=== PATIENT | male | born 1950 | race Caucasian/White ===

== ENCOUNTER 2017-01-28 07:04 | Day surgery (SDC) | payer MEDICARE, OTHER ==
[2017-01-23 14:55] VITALS: BMI 29.1
[~2017-01-28 07:04] MED LIST: ALPRAZolam 0.25 MG TAB PO PRN; ALPRAZolam 0.5 MG TAB PO PRN; ASPIRIN 325 MG TAB PO STA; ATORVASTATIN 80 MG TAB PO STA; NITROGLYCERIN SL TABS 0.4 MG TAB SUBLINGUAL PRN; SODIUM CHLORIDE 0.9% 1,000 ML in EMPTY BAG 1 BAG IV ONE
[2017-01-28 07:44] LABS: Basophils % (A) 0 %; CH 31.6; CHCM 34.5; Eosinophils # (A) 0.2 k/uL (0-0.7); Eosinophils % (A) 4 %; HCT 44.2 % (39.0-53.0); HDW 2.66; HGB 14.9 gm/dL (13.0-17.5); Luc % (Auto) 3; Lymphocytes # (A) 1.9 k/uL (1.0-4.8); Lymphocytes % (A) 28 %; MCH 31.1 pg (25.0-35.0); MCHC 33.7 g/dL (31.0-37.0); MCV 92.2 fL (80.0-100.0); Mean Platelet Volume 7.2; Monocytes # (A) 0.4 k/uL (0-1.0); Monocytes % (A) 6 %; Neutrophils % (A) 59 %; RBC 4.79 m/uL (4.30-5.90); WBC 6.7 k/uL (3.8-10.6); WBC (Perox) 6.67
[2017-01-28 07:52] VITALS: PULSE 60; TEMP 98
[2017-01-28 08:13] LABS: Anion Gap 11 mmol/L; Blood Urea Nitrogen 20 mg/dL (9-20); Calcium 9.3 mg/dL (8.4-10.2); Carbon Dioxide 26 mmol/L (22-30); Chloride 106 mmol/L (98-107); Glucose 108 mg/dL (74-99); Non-African American GFR(MDRD) >60 (>60 ml/min/1.73 sqM); Potassium 4.3 mmol/L (3.5-5.1); Sodium 143 mmol/L (137-145)
[2017-01-28] MEDS ORDERED: MIDAZOLAM 2 MG/2 ML VIAL ONE (08:46)
[2017-01-28] MEDS ORDERED: VERAPAMIL 2.5 MG/ML 2 ML AMP ONE (08:47)
[2017-01-28] MEDS ORDERED: fentaNYL (PF) 50 MCG/ML 2 ML AMP ONE (08:47)
[2017-01-28] MEDS ORDERED: LIDOCAINE 2% INJ 20 MG/ML (20 ML MDV) ONE (08:47)
[2017-01-28] MEDS ORDERED: fentaNYL (PF) 50 MCG/ML 2 ML AMP IV ONE (09:00)
[2017-01-28] MEDS ORDERED: MIDAZOLAM 2 MG/2 ML VIAL IVP ONE (09:00)
[2017-01-28] MEDS ORDERED: HEPARIN SODIUM 1,000 UNIT/ML VIAL ONE (09:01)
[2017-01-28] MEDS ORDERED: LIDOCAINE 2% INJ 20 MG/ML SQ ONE (09:05)
[2017-01-28] MEDS ORDERED: SODIUM CHLORIDE 0.9% 1,000 ML IV ONE (09:06)
[2017-01-28] MEDS ORDERED: VERAPAMIL SYRINGE (5 MG/10 ML) INTRAARTER ONE (09:08)
[2017-01-28] MEDS ORDERED: HEPARIN SODIUM 1,000 UNIT/ML VIAL IV ONE (09:09)
[2017-01-28] MEDS ORDERED: IOHEXOL 350 MG/ML 100 ML BOTTLE INJ ONE (09:25)
--- NOTE | 2017-01-28 09:37 | P.PCN ---
Date of Procedure: 01/28/17 Preoperative Diagnosis: Hypertension and hypercholesterolemia positive stress test and preop evaluation Postoperative Diagnosis: Mild atherosclerosis without any critical lesions. Description of Procedure: HISTORY: This is a 66-year-old gentleman with history of hypertension and hypercholesterolemia who is being considered for knee surgery. Patient was sent to our office because of abnormal EKG. His nuclear stress test was size to mildly ischemia in the inferior lateral segments. Patient is advised to have cardiac catheterization for definite diagnosis. CONSENT:I have discussed the risks, benefits and alternative therapies for the above-mentioned procedure and for both sedation/analgesia as well as necessary blood product administration, if indicated, as they pertain to this patient. The patient has indicated understanding and acceptance of the risks and procedures discussed. PROCEDURE: Patient was brought to the lab in a fasting state. Patient was given some IV sedation. The right wrist is infiltrated with lidocaine and right radial artery was entered using Seldinger technique. A 6-Tamazight catheter was left in place and selective coronary arteriography was performed using 5- Tamazight Joni catheters. Patient tolerated the procedure well. Hemostasis was obtained with the distal back. No immediate complications were noted and patient was transferred to [facility] in a stable condition HEMODYNAMICS: The aortic pressure is 130/80. Left ankle end-diastolic pressure is about 8-12. There was no gradient across the aortic valve SELECTIVE CORONARY ARTERIOGRAPHY: LEFT MAIN:. Normal length and patent THE LEFT ANTERIOR DESCENDING CORONARY ARTERY: Showed mild calcification in the proximal segment. It gives rise to good-sized first diagonal branch. The LAD and diagonal branch are free of any significant occlusive disease. THE LEFT CIRCUMFLEX AND IS CORONARY ARTERY: This is a good caliber vessel giving rise to small OM branches. The circumflex and its branches are free of occlusive disease. THE RIGHT CORONARY ARTERY: This is a good caliber vessel with ectatic changes in the proximal portion. LEFT VENTRICULOGRAPHY: Not performed FINAL IMPRESSION: Mild atherosclerosis and ectatic changes involving the proximal RCA and a some calcination noted in the proximal LAD PLAN: Maximum medical therapy and risk factor modification and patient is cleared for knee surgery PROGNOSIS: Good
[2017-01-28] MEDS ORDERED: SODIUM CHLORIDE 0.9% 1,000 ML IV SCH (10:15)
[2017-01-28 11:10] VITALS: RESP 18
[2017-01-28 15:50] VITALS: BP 120/78
== END 2017-01-28 14:40 | disposition home or self-care (01) ==
LOC: CATHCVL 07:04
PROVIDERS: ATTEND Internal Medicine Cardiovascular Disease
DX: I25.10 Atherosclerotic heart disease of native coronary artery without angina pectoris (principal); I25.84 Coronary atherosclerosis due to calcified coronary lesion; I10 Essential (primary) hypertension; F17.200 Nicotine dependence, unspecified, uncomplicated; Z01.810 Encounter for preprocedural cardiovascular examination; E78.2 Mixed hyperlipidemia; Z79.899 Other long term (current) drug therapy
CPT/HCPCS: 93458; 80048; 85025; 99152; 99153; C1894 ×2; C1769 ×2; J2001; J2250; Q9967; J3010; J1644